=== PATIENT | male | born 1945 | race Caucasian/White ===

== ENCOUNTER → 2016-07-26 | Outpatient (CLI) | payer OTHER ==
[~2016-07-26] MED LIST: ATOR-24 PO; CYCL10TA6 PO; HYDR-5688 PO; LSN/10125 PO
== END | disposition home or self-care (01) ==
LOC: C.PATHSPEC 13:23
PROVIDERS: ATTEND Nurse Practitioner
DX: L98.9 Disorder of the skin and subcutaneous tissue, unspecified (principal)

== ENCOUNTER 2016-08-08 09:14 | Emergency (ER) | payer OTHER ==
[~2016-08-08 09:14] MED LIST changes: -CYCL10TA6 PO; -HYDR-5688 PO
[2016-08-08 09:15] VITALS: TEMP 36.7; Ht 180.3 cm
[2016-08-08] MEDS ORDERED: SODIUM CHLORIDE 0.9% 1000ML 1,000 ML IV STA (09:45)
[2016-08-08] MEDS ORDERED: ONDANSETRON INJ 2 MG/ML 2 ML VIAL IV STA (09:45)
[2016-08-08] MEDS ORDERED: FENTANYL CITRATE INJ 50 MCG/1 ML 2 ML VIAL IV STA (09:45)
--- NOTE | 2016-08-08 09:58 | EMERGENCY ROOM VISIT NOTE ---
History Report prepared by Phi: Nancy Mchugh Under the Supervision of: Dr. Loren Tillman M.D. First contact with patient: 09:45 Chief Complaint: BACK PAIN Stated Complaint: BACK History of Present Illness The patient is a 70 year old male who presents to the Emergency Room with complaints of constant bilateral flank pain beginning at 1am this morning. The patient states that he was working and missed the last step on the ladder and fell backwards onto his back about 3 feet. He notes he is also experiencing pain on both sides of his ribs. The patient states that movement worsens the pain. He also notes deep breaths worsen the pain around his ribs. The patient denies midline spine tenderness, chest pain, neck pain, abdominal pain, vomiting , or blood in urine. He did have a hard hat on at the time of the fall and denies LOC. Source of History: patient Onset: 1am this morning Position: other (bilateral flanks) Timing: constant Associated Symptoms: No LOC, No chest pain, No nausea, No vomiting, No abdominal pain, No urinary symptoms Note: The patient is experiencing bilateral rib pain. Review of Systems See HPI for pertinent positives & negatives. A total of 10 systems reviewed and were otherwise negative. Past Medical & Surgical Medical Problems: (1) No known health problems Family History Patient reports no known family medical history. Social History Smoking Status: Never Smoker Smokeless Tobacco Use: No Marital Status: Housing Status: lives alone Occupation Status: employed Current/Historical Medications Scheduled Atorvastatin (Lipitor), 80 MG PO HS Hctz/Lisinopril (Lisinopril/Hctz 10/12.5 Mg), 1 TAB PO DAILY Scheduled PRN Cyclobenzaprine Hcl (Flexeril), 10 MG PO TID PRN for Muscle Spasms Hydrocodone/Acetaminophen 5MG/325MG ([place] 5MG/325MG), 1-2 TABLET PO Q6 PRN for Pain Allergies Coded Allergies: No Known Allergies (Unverified , 08/08/16) Physical Exam Vital Signs Date Time Temp Pulse Resp B/P (MAP) Pulse Ox O2 Delivery O2 Flow Rate FiO2 08/08/16 12:17 60 133/83 94 08/08/16 12:01 133/83 08/08/16 11:49 59 16 94 08/08/16 11:31 130/92 08/08/16 11:19 71 143/100 97 08/08/16 10:49 56 15 93 08/08/16 10:47 57 08/08/16 10:44 55 14 94 08/08/16 10:31 136/86 08/08/16 10:19 143/82 08/08/16 09:15 36.7 72 20 171/95 97 Room Air Physical Exam Vital signs reviewed. General: Obese. Well-appearing 70-year-old male, in some discomfort. HEENT: No scleral icterus, PERRLA, neck supple. Atraumatic. Cardiovascular: Regular rate and rhythm, no extra sounds. Pulmonary: Clear to auscultation bilaterally, equal bilaterally, normal work of breathing. Abdomen: Obese. Soft, nontender, nondistended, positive bowel sounds. Musculoskeletal: Atraumatic, no significant deformity. Large 10 cm soft tissue mass to back of neck that appears to be chronic, ? Lipoma. No tenderness to palpation over the cervical spine. No thoracic or lumbar spine tenderness. No ecchymosis or swelling appreciated. Tender along mid axillary line bilaterally with no crepitus or step off. Neurologic: Patient awake alert and oriented x 3, full strength in all 4 extremities. Skin: Warm, dry, no rash. No significant abrasions/laceration. Medical Decision & Procedures ER Provider Diagnostic Interpretation: Radiology results as stated below per my review and radiologist interpretation: CHEST ONE VIEW PORTABLE CLINICAL HISTORY: trauma, SOB COMPARISON STUDY: No previous studies for comparison. FINDINGS: The bones soft tissues and hemidiaphragms are normal. The cardiomediastinal silhouette is normal. The lungs are clear. The pulmonary vasculature is normal. IMPRESSION: Negative chest. Electronically signed by: Bolivar Cross M.D. 08/08/2016 10:14 AM Dictated Date/Time: 08/08/2016 10:[address] SCAN OF THE CHEST WITH IV CONTRAST CLINICAL HISTORY: Fall with chest pain. COMPARISON STUDY: Chest x-ray dated 08/08/2016. TECHNIQUE: Following the IV administration of 90 cc of Optiray 320, CT scan of the thorax was performed from the thoracic inlet to the upper abdomen. Images are reviewed in the axial, sagittal, and coronal planes. IV contrast was administered without complication. The examination is degraded by large body habitus, and by streak artifact from the body wall abutting the CT gantry. CT DOSE: 631.91 mGycm FINDINGS: Thyroid: Imaged portions of the thyroid gland are normal in size and attenuation. Thoracic aorta: The thoracic aorta is normal in caliber and demonstrates standard 3-vessel arch anatomy. No dissection is seen. Pulmonary vasculature: The pulmonary trunk is dilated, measuring up to 4.0 cm. This suggests pulmonary artery hypertension. There are no filling defects identified in the central pulmonary vessels to indicate pulmonary embolus. Note that this examination was not protocoled for evaluation of the pulmonary arteries. Heart: The heart is enlarged and without pericardial effusion. The coronary arteries are densely calcified. Lungs and pleural spaces: There is no airspace consolidation, pleural effusion, or pneumothorax. Dependent atelectasis is observed. The trachea and central airways are clear. Mediastinum: There is no mediastinal lymphadenopathy. Paty: Clear. Axillae: There is no axillary lymphadenopathy. Upper abdomen: The liver is enlarged and steatotic. A large calcified gallstone is partially imaged. There is a small hiatal hernia. Skeletal structures: The skeletal structures are osteopenic. No acute fracture is clearly seen. There is a mild and age indeterminant but chronic-appearing compression deformity of T5. Degenerative change is noted throughout the thoracic spine. There is evidence of DISH. No lytic or blastic bony lesions are seen. IMPRESSION: 1. There is no acute posttraumatic intrathoracic abnormality. 2. Cardiomegaly with evidence of pulmonary artery hypertension. 3. There is no airspace consolidation, pleural effusion, or pneumothorax. 4. Hepatomegaly and hepatic steatosis. 5. Cholelithiasis. Electronically signed by: Bud Lynch M.D. 08/08/2016 11:25 AM Dictated Date/Time: 08/08/2016 11:17 AM Laboratory Results 08/08/16 10:13 Red Blood Count 5.48, Mean Corpuscular Volume 90.0, Mean Corpuscular Hemoglobin 30.1, Mean Corpuscular Hemoglobin Concent 33.5, Mean Platelet Volume 9.8, Neutrophils (%) (Auto) 65.9, Lymphocytes (%) (Auto) 27.1, Monocytes (%) (Auto) 6.0, Eosinophils (%) (Auto) 0.6, Basophils (%) (Auto) 0.2, Neutrophils # (Auto) 5.69, Lymphocytes # (Auto) 2.34, Monocytes # (Auto) 0.52, Eosinophils # (Auto) 0.05, Basophils # (Auto) 0.02 08/08/16 10:13 Test 08/08/16 10:13 08/08/16 10:20 White Blood Count 8.64 K/uL (4.8-10.8) Red Blood Count 5.48 M/uL (4.7-6.1) Hemoglobin 16.5 g/dL (14.0-18.0) Hematocrit 49.3 % (42-52) Mean Corpuscular Volume 90.0 fL (80-100) Mean Corpuscular Hemoglobin 30.1 pg (25-34) Mean Corpuscular Hemoglobin Concent 33.5 g/dl (32-36) Platelet Count 212 K/uL (130-400) Mean Platelet Volume 9.8 fL (7.4-10.4) Neutrophils (%) (Auto) 65.9 % Lymphocytes (%) (Auto) 27.1 % Monocytes (%) (Auto) 6.0 % Eosinophils (%) (Auto) 0.6 % Basophils (%) (Auto) 0.2 % Neutrophils # (Auto) 5.69 K/uL (1.4-6.5) Lymphocytes # (Auto) 2.34 K/uL (1.2-3.4) Monocytes # (Auto) 0.52 K/uL (0.11-0.59) Eosinophils # (Auto) 0.05 K/uL (0-0.5) Basophils # (Auto) 0.02 K/uL (0-0.2) RDW Standard Deviation 43.7 fL (36.4-46.3) RDW Coefficient of Variation 13.3 % (11.5-14.5) Immature Granulocyte % (Auto) 0.2 % Immature Granulocyte # (Auto) 0.02 K/uL (0.00-0.02) Estimated GFR () 54.7 Estimated GFR (Non- 47.2 BUN/Creatinine Ratio 17.2 (10-20) Calcium Level 9.2 mg/dl (8.5-10.1) Total Bilirubin 1.7 mg/dl (0.2-1) Direct Bilirubin 0.3 mg/dl (0-0.2) Aspartate Amino Transf (AST/SGOT) 29 U/L (15-37) Alanine Aminotransferase (ALT/SGPT) 40 U/L (12-78) Alkaline Phosphatase 93 U/L (45-117) Total Protein 7.8 gm/dl (6.4-8.2) Albumin 3.6 gm/dl (3.4-5.0) Bedside Hemoglobin 17.0 g/dl (14.0-18.0) Bedside Hematocrit 50 % (42-52) Bedside Sodium 139 mEq/L (135-144) Bedside Potassium 5.1 mEq/L (3.3-5.0) Bedside Chloride 100 mEq/L (101-112) Bedside Total CO2 28 mEq/l (24-31) Anion Gap 17.0 mmol/L (16-25) Bedside Blood Urea Nitrogen 37 mg/dl (7-18) Bedside Creatinine 1.3 mg/dl (0.6-1.3) Bedside Glucose (other) 104 mg/dl (70-99) Bedside Ionized Calcium (Ricci) 1.15 mmol/l (1.12-1.32) Laboratory results per my review. Medications Administered Medications (Trade) Dose Ordered Sig/Shira Route Start Time Stop Time Status Last Admin Dose Admin Sodium Chloride 1,000 ml @ 150 mls/hr Q6H40M STAT IV 08/08/16 09:45 08/08/16 12:37 DC 08/08/16 10:15 150 MLS/HR Fentanyl Citrate (Fentanyl Inj) 50 mcg NOW STAT IV 08/08/16 09:45 08/08/16 09:47 DC 08/08/16 10:15 50 MCG Ondansetron HCl (Zofran Inj) 4 mg NOW STAT IV 08/08/16 09:45 08/08/16 09:47 DC 08/08/16 10:15 4 MG Cyclobenzaprine HCl (Flexeril Tab) 10 mg NOW STAT PO 08/08/16 11:13 08/08/16 11:14 DC 08/08/16 11:19 10 MG Morphine Sulfate (MoRPHine SULFATE INJ) 6 mg NOW STAT IV 08/08/16 11:17 08/08/16 11:18 DC 08/08/16 11:22 6 MG ECG Indication: back/shoulder pain Rate (beats per minute): 54 Rhythm: sinus bradycardia Findings: PAC, other (T wave abnormality in the anterolateral leads) ED Course 0943: Past medical records reviewed. The patient was evaluated in room B9. A complete history and physical examination was performed. 0945: Zofran Inj 4 mg IV, Fentanyl Inj 50 mcg IV, Sodium Chloride 1,000 ml @ 150 mls/hr IV. 1113: Flexeril Tab 10 mg PO. 1117: Morphine Sulfate Inj 6 mg IV. 1202: The patient's daughter is on her way to cotton picker operator the patient. 1208: Upon reevaluation, the patient appeared to have improvement of the patient 's symptoms. I discussed findings with him. He verbalized agreement of the treatment plan. He was discharged home. Medical Decision Differential diagnosis: Intracranial injury, cervical spine injury, intrathoracic injury, intra- abdominal injury, musculoskeletal injury. Medication Reconciliation: I attest that I have personally reviewed the patient' s current medication list. Blood Pressure Screening: Patient was found to have an elevated blood pressure and was referred to their primary doctor for recheck and further treatment. This patient was evaluated and appeared to be in some discomfort. Physical examination is concerning for a tenderness along the bilateral axillary line and with deep inspiration. Chest x-ray was performed and is negative for pneumothorax or acute bony abnormality. CT scan of the chest was performed to rule out aortic injury, saddle pneumothorax or bony injury. This study is also negative for acute traumatic findings. The patient had some relief of his discomfort with IV fentanyl, shortly thereafter IV morphine. He was also given Flexeril for muscular spasm. The patient was informed of the findings. He was discharged to the care of his daughter. Patient was given prescriptions for both [place] and Flexeril and advised not to drive after taking these medications. Impression Primary Impression: Fall Additional Impression: Contusion, back Scribe Attestation The scribe's documentation has been prepared under my direction and personally reviewed by me in its entirety. I confirm that the note above accurately reflects all work, treatment, procedures, and medical decision making performed by me. Departure Information Dispostion Home / Self-Care Prescriptions Cyclobenzaprine Hcl (FLEXERIL) 10 Mg Tab 10 MG PO TID Y for Muscle Spasms, #21 TAB Prov: Loren Tillman M.D. 08/08/16 Hydrocodone/Acetaminophen 5MG/325MG ([place] 5MG/325MG) Tab 1-2 TABLET PO Q6 Y for Pain, #20 TAB Prov: Loren Tillman M.D. 08/08/16 Referrals No Doctor, Assigned (PCP) Forms HOME CARE DOCUMENTATION FORM, IMPORTANT VISIT INFORMATION Patient Instructions My [facility] Additional Instructions Diagnosis: Fall, back contusion [place] one to 2 tabs every 6 hours as needed for severe pain. Flexeril 10 mg 3 times a day as needed for muscular spasm. Do not drive after taking the above medications. Warm compresses and gentle stretching. Drink plenty of fluids. Return to the emergency department for worsening of symptoms or any medical concerns. Problem Qualifiers
--- NOTE | 2016-08-08 10:16 | DIAGNOSTIC IMAGING REPORT ---
CHEST ONE VIEW PORTABLE CLINICAL HISTORY: trauma, SOB COMPARISON STUDY: No previous studies for comparison. FINDINGS: The bones soft tissues and hemidiaphragms are normal. The cardiomediastinal silhouette is normal. The lungs are clear. The pulmonary vasculature is normal. IMPRESSION: Negative chest. Electronically signed by: Bolivar Cross M.D. 08/08/2016 10:14 AM Dictated Date/Time: 08/08/2016 10:14 AM
[2016-08-08 10:26] LABS: BASO % 0.2 %; BASO ABS # 0.02 K/uL (0-0.2); COMPLETE YES; EOS % 0.6 %; HEMATOCRIT 49.3 % (42-52); IG% 0.2 %; LYMPH % 27.1 %; LYMPH ABS # 2.34 K/uL (1.2-3.4); MEAN CORPUSCULAR HEMOGLOBIN 30.1 pg (25-34); MEAN CORPUSCULAR HGB CONC 33.5 g/dl (32-36); MEAN PLATELET VOLUME 9.8 fL (7.4-10.4); NEUT % 65.9 %; PLATELET COUNT 212 K/uL (130-400); RED BLOOD COUNT 5.48 M/uL (4.7-6.1); WHITE BLOOD COUNT 8.64 K/uL (4.8-10.8)
[2016-08-08 10:34] LABS: ISTAT CREATININE 1.3 mg/dl (0.6-1.3); ISTAT IONIZED CALCIUM 1.15 mmol/l (1.12-1.32)
[2016-08-08 10:45] LABS: ALT/SGPT 40 U/L (12-78); BLOOD UREA NITROGEN 26 mg/dl (7-18); BUN/CREATININE RATIO 17.2 (10-20); CALCIUM 9.2 mg/dl (8.5-10.1); CARBON DIOXIDE 25 mmol/L (21-32); CHLORIDE 105 mmol/L (98-107); GLUCOSE 101 mg/dl (70-99); POTASSIUM 4.3 mmol/L (3.5-5.1); SODIUM 138 mmol/L (136-145)
[2016-08-08 10:48] LABS: ALKALINE PHOSPHATASE 93 U/L (45-117); AST/SGOT 29 U/L (15-37)
[2016-08-08] MEDS ORDERED: CYCLOBENZAPRINE HCL 10 MG TAB PO STA (11:13)
[2016-08-08] MEDS ORDERED: OPTIRAY 320 IV PRN (11:15)
[2016-08-08] MEDS ORDERED: MoRPHine SULFATE 10 MG/ML CARP/VIAL IV STA (11:17)
--- NOTE | 2016-08-08 11:26 | DIAGNOSTIC IMAGING REPORT ---
CT SCAN OF THE CHEST WITH IV CONTRAST CLINICAL HISTORY: Fall with chest pain. COMPARISON STUDY: Chest x-ray dated 08/08/2016. TECHNIQUE: Following the IV administration of 90 cc of Optiray 320, CT scan of the thorax was performed from the thoracic inlet to the upper abdomen. Images are reviewed in the axial, sagittal, and coronal planes. IV contrast was administered without complication. The examination is degraded by large body habitus, and by streak artifact from the body wall abutting the CT gantry. CT DOSE: 631.91 mGycm FINDINGS: Thyroid: Imaged portions of the thyroid gland are normal in size and attenuation. Thoracic aorta: The thoracic aorta is normal in caliber and demonstrates standard 3-vessel arch anatomy. No dissection is seen. Pulmonary vasculature: The pulmonary trunk is dilated, measuring up to 4.0 cm. This suggests pulmonary artery hypertension. There are no filling defects identified in the central pulmonary vessels to indicate pulmonary embolus. Note that this examination was not protocoled for evaluation of the pulmonary arteries. Heart: The heart is enlarged and without pericardial effusion. The coronary arteries are densely calcified. Lungs and pleural spaces: There is no airspace consolidation, pleural effusion, or pneumothorax. Dependent atelectasis is observed. The trachea and central airways are clear. Mediastinum: There is no mediastinal lymphadenopathy. Paty: Clear. Axillae: There is no axillary lymphadenopathy. Upper abdomen: The liver is enlarged and steatotic. A large calcified gallstone is partially imaged. There is a small hiatal hernia. Skeletal structures: The skeletal structures are osteopenic. No acute fracture is clearly seen. There is a mild and age indeterminant but chronic-appearing compression deformity of T5. Degenerative change is noted throughout the thoracic spine. There is evidence of DISH. No lytic or blastic bony lesions are seen. IMPRESSION: 1. There is no acute posttraumatic intrathoracic abnormality. 2. Cardiomegaly with evidence of pulmonary artery hypertension. 3. There is no airspace consolidation, pleural effusion, or pneumothorax. 4. Hepatomegaly and hepatic steatosis. 5. Cholelithiasis. Electronically signed by: Bud Lynch M.D. 08/08/2016 11:25 AM Dictated Date/Time: 08/08/2016 11:17 AM
[2016-08-08] MEDS ORDERED: HYDR-5688 PO (12:03)
[2016-08-08] MEDS ORDERED: CYCL10TA6 PO (12:03)
[2016-08-08 12:17] VITALS: BP 133/83; PULSE 60; O2SAT 94
== END 2016-08-08 12:18 | disposition home or self-care (01) ==
LOC: C.EDB 09:17
DX: S30.0XXA Contusion of lower back and pelvis, initial encounter (principal); W11.XXXA Fall on and from ladder, initial encounter

== ENCOUNTER → 2016-08-13 | Outpatient (CLI) | payer OTHER ==
[~2016-08-13] MED LIST changes: +CYCL10TA6 PO; +HYDR-5688 PO
--- NOTE | 2016-08-13 14:12 | DIAGNOSTIC IMAGING REPORT ---
PA CHEST WITH LEFT-SIDED RIB SERIES CLINICAL HISTORY: Fall with left-sided chest wall pain. FINDINGS: A PA chest radiograph with 6 additional views may left-sided rib series is compared to chest x-ray and chest CT dated 08/08/2016. The examination is degraded by large body habitus. The heart is enlarged. The pulmonary vasculature is noncongested. There is mild elevation of the right hemidiaphragm and bibasilar atelectasis. The lungs and pleural spaces are otherwise clear. No pneumothorax is seen. The skeletal structures are osteopenic. There is no radiographic evidence of acute/distracted left-sided rib fracture on the rib series as clinically queried. The remainder of the bony thorax is grossly intact. IMPRESSION: 1. Cardiomegaly with no acute cardiopulmonary abnormality. 2. There is no radiographic evidence of left-sided rib fracture as clinically queried. Electronically signed by: Bud Lynch M.D. 08/13/2016 2:10 PM Dictated Date/Time: 08/13/2016 2:04 PM
== END | disposition home or self-care (01) ==
LOC: C.RAD1850 13:38
PROVIDERS: ATTEND Nurse Practitioner
DX: R07.81 Pleurodynia (principal); I51.7 Cardiomegaly